=== PATIENT | female | born 1950 | race Caucasian/White ===

== ENCOUNTER 2017-05-07 08:28 | Day surgery (SDC) | payer MEDICARE, BC ==
[2017-05-07] MEDS ORDERED: fentaNYL 100 MCG/2 ML SDV ONE (08:32)
[2017-05-07] MEDS ORDERED: Propofol 200 MG/20 ML SDV ONE (08:32)
[2017-05-07] MEDS ORDERED: Midazolam 1 MG/ML 2 ML SDV ONE (08:32)
[2017-05-07] MEDS ORDERED: Lactated Ringers 1,000 ML IV SCH (09:00)
[2017-05-07 11:10] VITALS: BP 136/80
--- NOTE | 2017-05-08 08:47 | OR ---
DATE OF PROCEDURE: 05/07/2017 PREOPERATIVE DIAGNOSIS: Colon cancer screening. POSTOPERATIVE DIAGNOSIS: Unremarkable colonoscopy. PROCEDURE: Colonoscopy to the cecum. ANESTHESIA: IV anesthesia with monitored anesthesia care. INDICATIONS: This 66-year-old white female is referred for a colonoscopy for colon cancer screening. She says her last colonoscopic exam was done back in the . I counseled her for the procedure including risks and alternatives, and she gave her informed consent to proceed. DESCRIPTION OF PROCEDURE: The patient was placed in the left lateral decubitus position. IV anesthesia was administered by the Anesthesia Service. Time-out was held. A rectal exam was performed, which was unremarkable. The flexible video Olympus colonoscope was introduced through her anus, up her rectum, and out her colon all the way to the cecum. To accomplish this, we did have to apply some abdominal compression. Once the cecum was reached, the scope was slowly withdrawn, examining the mucosa throughout. No mucosal abnormalities were noted. The scope was retroflexed in the rectum with the distal rectum appearing unremarkable. The scope was straightened and removed. She tolerated the procedure well. Miko Nielsen MD /[id number] [facility]
== END 2017-05-07 11:30 | disposition home or self-care (01) ==
LOC: JP.SDS 08:28
PROVIDERS: ATTEND Surgery
DX: Z12.11 Encounter for screening for malignant neoplasm of colon (principal); I10 Essential (primary) hypertension; E11.9 Type 2 diabetes mellitus without complications; E03.9 Hypothyroidism, unspecified; Z88.0 Allergy status to penicillin; Z88.8 Allergy status to other drugs, medicaments and biological substances
CPT/HCPCS: G0121; J2250; J2704; J3010; J7120